=== PATIENT | male | born 1990 | race Caucasian/White ===

== ENCOUNTER 2018-11-18 08:10 | Day surgery (SDC) | payer BC ==
[~2018-11-18 08:10] MED LIST: ACETAMINOPHEN 1,000 MG/100 ML BTL IVPB ONE; CLINDAMYCIN PHOS/D5W 900MG 900 MG/50 ML BAG IVPB ONE
[2018-11-18] MEDS ORDERED: SEVOFLURANE 250 ML INH ONE (08:11)
[2018-11-18] MEDS ORDERED: PROPOFOL 10 MG/ML VIAL IV ONE (08:11)
[2018-11-18] MEDS ORDERED: KETOROLAC 30 MG/ML VIAL IVP ONE (08:11)
[2018-11-18] MEDS ORDERED: MORPHINE SULFATE 4 MG/ML VIAL IVP ONE (08:11)
[2018-11-18] MEDS ORDERED: MIDAZOLAM HCL 2MG/2ML VIAL IV ONE (08:11)
[2018-11-18] MEDS ORDERED: LIDOCAINE 2% MDV (20MG/ML) 20ML VIAL IV ONE (08:11)
[2018-11-18] MEDS ORDERED: RINGERS SOLUTION,LACTATED 1,000 ML IV ONE (08:45)
[2018-11-18] MEDS ORDERED: MORPHINE SULFATE 5 MG/ML PREFILLED SYRINGE IM ONE (11:10)
[2018-11-18] MEDS ORDERED: BUPIVACAINE 0.5% W/EPI MPF 30 ML VIAL SQ ONE (11:10)
[2018-11-18] MEDS ORDERED: METHYLPREDNISOLONE 40MG/VIAL IU ONE (11:10)
--- NOTE | 2018-11-18 13:50 | Operative Note ---
DATE OF SURGERY: 11/18/2018 PREOPERATIVE DIAGNOSIS: Persistent fat pad impingement, right knee. POSTOPERATIVE DIAGNOSES: 1. Fat pad impingement. 2. Large medial plica. OPERATION: Right knee arthroscopy with debridement of impinging fat pad and plica. STAFF SURGEON: Lemuel Beard MD ANESTHESIA: General. PREPARATION: Chloraprep. INDIVIDUAL CONSIDERATIONS: None. PROCEDURE: The patient was taken to the operating room and placed supine on the operating room table. He had a successful induction of a general anesthetic. His right lower extremity was prepped and draped in the usual fashion. The patient had a superolateral inflow cannula placed. Skin was infiltrated with 0.5% Marcaine with epinephrine prior. The knee was then inflated with normal saline. An inferomedial and an inferolateral portal were made in a similar fashion. The arthroscope was introduced through the inferolateral portal up into the pouch. Patellofemoral compartment was normal at the joint but there was a large impinging fat pad distally and a plica. These were resected with a shaver. Medial compartment and lateral compartment structures and cruciates were normal. After irrigation, portals were closed with elizabeth, and 20 mL of 0.5% Marcaine with epinephrine along with 4 mg of morphine and 40 mg of Depo-Medrol were injected into the knee. A sterile bulky compressive dressing was applied. The patient tolerated procedure well. Needle and sponge counts were correct. Estimated blood loss was minimal. He was taken back to recovery in good condition. There were no complications. [facility]
== END 2018-11-18 12:15 | disposition home or self-care (01) ==
LOC: SUR 08:10
PROVIDERS: ATTEND Orthopaedic Surgery
DX: M79.4 Hypertrophy of (infrapatellar) fat pad (principal); M67.51 Plica syndrome, right knee
CPT/HCPCS: 29877; 01400; J1885; J3490; J2270; J1030; J7120